=== PATIENT | male | born 1990 | race Caucasian/White ===

== ENCOUNTER 2017-04-28 08:28 | Emergency (ER) | payer SELFPAY ==
[~2017-04-28] VITALS: Ht 185.4 cm; Wt 86.2 kg
[2017-04-28 08:28] VITALS: BP_SYST 130
[2017-04-28] MEDS ORDERED: IBUPROFEN 600 MG TABLET PO ONE (09:00)
[2017-04-28 10:20] VITALS: BP_SYST 132
== END 2017-04-28 10:20 | disposition home or self-care (01) ==
LOC: SED 08:28
DX: S33.5XXA Sprain of ligaments of lumbar spine, initial encounter (principal); S23.3XXA Sprain of ligaments of thoracic spine, initial encounter; X58.XXXA Exposure to other specified factors, initial encounter; Y93.89 Activity, other specified; Y92.89 Other specified places as the place of occurrence of the external cause; Y99.8 Other external cause status
CPT/HCPCS: 72072-TC; 72100-TC; 99284